=== PATIENT | female | born 1980 | race Caucasian/White ===

== ENCOUNTER 2024-02-20 09:46 | Emergency (ER) | payer BC ==
[~2024-02-20] VITALS: Ht 177.8 cm; Wt 102.0 kg
[2024-02-20 09:48] VITALS: BP 132/74; PULSE 93; RESP 16; O2SAT 99
[2024-02-20] MEDS ORDERED: CLON1TAB2 PO (10:10)
[2024-02-20] MEDS ORDERED: PROC-8 PO ×2 (10:10→10:26)
[2024-02-20] MEDS: clonazePAM 1mg tablet PO ONE (10:25)
[2024-02-20] MEDS: proCHLORperazine 10mg tablet PO ONE (10:25)
[2024-02-20 11:28] VITALS: TEMP 97.2
== END 2024-02-20 11:30 | disposition home or self-care (01) ==
LOC: ER 09:46
DX: F41.9 Anxiety disorder, unspecified (principal); Z76.0 Encounter for issue of repeat prescription; Z79.899 Other long term (current) drug therapy
CPT/HCPCS: 99283; Q0164